=== PATIENT | female | born 1980 | race Caucasian/White ===

== ENCOUNTER 2017-11-24 17:54 | Inpatient (IN) | payer OTHER ==
[2017-11-24] MEDS ORDERED: LR 500 ML IV ONE (18:55)
[2017-11-24] MEDS ORDERED: ceFAZolin 2 GM/DEXTROSE 100 ML IV ONE (18:55)
[2017-11-24] MEDS ORDERED: CITRIC ACID/SODIUM CITRATE 30 ML UDCUP PO ONE (18:55)
[2017-11-24] MEDS ORDERED: LR 1,000 ML IV SCH (19:00)
[2017-11-24 19:05] LABS: PLATELET COUNT 245 10^3/uL (150-400)
[2017-11-24] MEDS ORDERED: fentaNYL 100 MCG/2 ML INJ ONE (19:33)
[2017-11-24] MEDS ORDERED: morphINE PF 5 MG/10 ML INJ ONE (19:33)
--- NOTE | 2017-11-24 20:01 | PREANESOB ---
Obstetric Pre-Anesthesia Info - General Info Proposed Procedure: Repeat C Section. : 2 Para: 1 BRIDGET: 12/10/17 Gestational Age: 37 week(s) and 5 day(s) - Info Status: Full Term Monitors: External FHR Baseline (bpm): 150 FHR Pattern: Reassuring - Labor Status Section History: Repeat Indications for Current Section: Elective/Repeat (SROM.) Labor Epidural: No Anesthesia ROS: Prior spinal for C/S and general anesthesia. Allergies/Adverse Reactions: Allergy/AdvReac Type Severity Reaction Status Date / Time Sulfa (Sulfonamide Allergy Verified 07/07/15 05:58 Antibiotics) Home Medications: Medication Instructions Recorded Herbals/Supplements -Info Only 4 tab PO DAILY 07/07/15 Vit27&Calcium/Iron/FA 1 tab PO DAILY 07/07/15 [] Docusate Sodium [Colace 100 MG (*)] 100 mg PO BID PRN #0 cap 07/10/15 FLUoxetine [Prozac 20 MG (*)] 60 mg PO DAILY #0 cap 07/10/15 Hydrocodone/APAP 5/325 [[place] 1 - 2 tab PO Q4 PRN #0 tab 07/10/15 5/325 (*)] Ibuprofen [Motrin (*)] 600 mg PO Q6 PRN #0 tab 07/10/15 Iron Polysacch/Iron Heme Polyp 28 mg PO BID #0 tab 07/10/15 [Bifera] valACYclovir [Valtrex (*)] 500 mg PO BID #0 tab 07/10/15 Visit Medications: Generic Name Dose Route Start Last Admin Trade Name Freq PRN Reason Stop Dose Admin Lactated Ringer's 1,000 mls @ 125 mls/hr 11/24/17 19:00 11/24/17 18:55 Lr IV 11/25/17 18:59 1,000 mls CONT TAB Administration Discontinued Medications Generic Name Dose Route Start Last Admin Trade Name Freq PRN Reason Stop Dose Admin Citric Acid/Sodium Citrate 30 ml 11/24/17 18:55 11/24/17 19:43 Bicitra PO 11/24/17 18:56 30 ml ONCALL ONE Administration Fentanyl Confirm 11/24/17 19:33 Sublimaze Administered 11/24/17 19:34 Dose 100 mcg .ROUTE .STK-MED ONE Cefazolin Sodium/Dextrose 100 mls @ 200 mls/hr 11/24/17 18:55 11/24/17 19:41 Ancef 2 Gm IV 11/24/17 19:24 100 mls ONCALL ONE Administration Protocol Lactated Ringer's 500 mls @ 0 mls/hr 11/24/17 18:55 Lr IV 11/24/17 18:56 ONCE ONE As Directed Morphine Sulfate Confirm 11/24/17 19:33 Morphine Pf 5 Mg/10 Ml Administered 11/24/17 19:34 Dose 5 mg .ROUTE .STK-MED ONE - Anesthesia History Response to Local Anesthetics: Normal Anesthesia & Operative History: No Prior Problems Family Anesthesia History: Negative - Social History Substance Use/Abuse: Denies - Vital Signs Latest Vital Signs (Nursing): Temp Pulse Resp BP Pulse Ox 37.3 C 76 17 126/79 H 95 11/24/17 19:11 11/24/17 18:23 11/24/17 19:11 11/24/17 19:11 11/24/17 19:11 Blood Pressure: 126/79 Heart Rate: 76 Height/Weight (Nursing): Height 170.18 cm Weight 82.372 kg - Focused Exam Neck exam: FROM Mallampati Score: Class 1 Mouth exam: normal dental/mouth exam Pulmonary: no respiratory distress Cardiovascular: regular rate and rhythym Labs: 11/24/17 18:50 Patient ABO/Rh O POSITIVE 11/24/17 18:50 - Plan Anesthetic Plan: SAB Consent Signed and on Chart: Yes Patient/Guardian Understands and Agrees to Plan: Yes
[2017-11-24] MEDS ORDERED: ONDANSETRON 4 MG/2 ML VIAL ONE ×2 (20:30→20:31)
[2017-11-24] MEDS ORDERED: DEXAMETHASONE 4 MG/ML VIAL ONE ×2 (20:30→20:31)
[2017-11-24] MEDS ORDERED: OXYTOCIN 100 UNITS/10 ML VIAL ONE (20:30)
[2017-11-24] MEDS ORDERED: PHENYLEPHRINE HCL 100 MCG/ML SYR ONE ×2 (20:31→21:06)
[2017-11-24] MEDS ORDERED: PROMETHAZINE HCL 25 MG/ML INJ IVP PRN (21:39)
[2017-11-24] MEDS ORDERED: SIMETHICONE 80 MG TAB CHEW PO PRN (21:39)
[2017-11-24] MEDS ORDERED: DOCUSATE SODIUM 100 MG CAP PO PRN (21:39)
[2017-11-24] MEDS ORDERED: BISACODYL 10 MG SUPP PR PRN (21:41)
[2017-11-24] MEDS ORDERED: MAGNESIUM HYDROXIDE 30 ML UDCUP PO PRN (21:41)
[2017-11-24] MEDS ORDERED: LACTULOSE 20 GM/30 ML UDCUP PO PRN (21:41)
--- NOTE | 2017-11-24 21:45 | OBDEL ---
Info Type: Repeat Presentation at Delivery: Vertex L&D Analgesia/Anesthesia Type: Spinal GBS+: No Intrapartum Medications: Generic Name Dose Route Start Last Admin Trade Name Freq PRN Reason Stop Dose Admin Lactated Ringer's 1,000 mls @ 125 mls/hr 11/24/17 19:00 11/24/17 18:55 Lr IV 11/25/17 18:59 1,000 mls CONT TAB Administration Discontinued Medications Generic Name Dose Route Start Last Admin Trade Name Freq PRN Reason Stop Dose Admin Citric Acid/Sodium Citrate 30 ml 11/24/17 18:55 11/24/17 19:43 Bicitra PO 11/24/17 18:56 30 ml ONCALL ONE Administration Cefazolin Sodium/Dextrose 100 mls @ 200 mls/hr 11/24/17 18:55 11/24/17 19:41 Ancef 2 Gm IV 11/24/17 19:24 100 mls ONCALL ONE Administration Protocol - Care Provider Supervisor Special Effects/TRIAGE RN: Rhonda Mann Indications for Delivery: Spontaneous Labor, SROM Vaginal Delivery - Labor and Delivery Rupture of Membranes Date: 11/24/17 Rupture of Membranes Time: 16:40 Placenta Delivery Date: 11/24/17 Placenta Delivery Time: 20:43 Operative Report - Delivery Pre-op Diagnoses: IUP @ 37 5/7 weeks with h/o c section with G1, SROM Post-op Diagnoses: same History of Prior Section: Yes Number of Prior Sections: 1 Nulliparous Prior to Delivery: No Indications for Prior Section: Breech Indications for Current Section: Elective/Repeat (SROM.), Other ( Specify) (SROM @ 37 2/7 weeks) Procedure: Unscheduled Surgeon: Bel Crump Etl Analyst: Corby Gama Anesthesiologist: Colt Gar Complications: None Findings: normal uterus, tubes and ovaries IV Fluid (ml): 2,900 EBL: 700 Data BRIDGET: 12/10/17 Gestational Age: 37 week(s) and 5 day(s) [place] Delivery Date: 11/24/17 Delivery Time: 20:43 Sex of Infant: Female Score (1 Min): 8 Score (5 Min): 9 ICD10 Worksheet Patient Problems: Problems Problem Status Onset S/P section Acute - ICD10 Problem Qualifiers (1) S/P section
--- NOTE | 2017-11-24 21:46 | POSTANESTH ---
Post Anesthetic Evaluation Cardiovascular Status: Normal, Stable Respiratory Status: Normal, Stable, Similar to Pre-op Cond. Level of Consciousness/Mental Status: Can Participate in Eval, Alert and Oriented Pain Control: Adequate, Prn Tx Ordered Nausea/Vomiting Control: Adequate, Prn Tx Ordered Complications Possibly Related to Anesthesia: None Noted
[2017-11-24] MEDS ORDERED: PHENYLEPHRINE HCL 100 MCG/ML SYR IVP PRN (21:47)
[2017-11-24] MEDS ORDERED: NALOXONE HCL 0.4 MG/ML INJ IVP PRN (21:53)
[2017-11-24] MEDS ORDERED: ONDANSETRON 4 MG/2 ML VIAL IVP PRN (21:53)
[2017-11-24] MEDS ORDERED: KETOROLAC 30 MG/1 ML SDV ONE (22:12)
--- NOTE | 2017-11-24 22:21 | GOP ---
[f rep st] OPERATIVE REPORT DATE OF OPERATION: 11/24/2017 SURGEON: Bel Crump MD CREW SCHEDULER: Corby Gama MD. ANESTHESIA: Spinal anesthesia. ANESTHESIOLOGIST: Colt Gar MD. PREOPERATIVE DIAGNOSIS: 1. Intrauterine at 37-5/7 weeks' gestation with spontaneous rupture of the membranes. 2. History of lower transverse section desires repeat. POSTOPERATIVE DIAGNOSIS: 1. Intrauterine at 37-5/7 weeks' gestation with spontaneous rupture of the membranes. 2. History of lower transverse section desires repeat. PROCEDURE PERFORMED: Repeat lower transverse section. FINDINGS: Viable female 's of 8 and 9, weight of 6 pounds 5.5 ounces. ESTIMATED BLOOD LOSS: For the procedure was 700. INDICATIONS: The patient is a 36-year-old 2, para 1-0-0-1, with a last menstrual period of 1 05/04/2016, and EDC of 12/10/2017, which was confirmed by an 8-week ultrasound. 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 On the afternoon of the , the pa tient had spontaneous rupture of the membranes for clear fluid at 4:40 p.m. She had minimal cramping . No significant labor contractions. She was grossly ruptured. She presented to labor and delivery , and opted for a repeat for delivery. She was consented for the procedure. She understoo d the risks and benefits, the risks including bleeding, infection, damage to internal organs, uterus, tubes, ovaries, bowel, bladder, nerves, blood vessels, ureters, risk of injury, risk of hemorr jannet requiring blood transfusion, hysterectomy, or . She understood these risks and benefits an d agreed to proceed. DESCRIPTION OF PROCEDURE: The patient was taken to the operating room where she was placed under spi nal anesthesia without difficulty. She was prepped and draped in the dorsal supine position with a l eftward tilt, and a Avila catheter was placed in the bladder. After adequate anesthesia was document ed, a transverse skin incision was made with a scalpel and the incision was carried down to the under lying layer of fascia with the Bovie. The fascia was incised in the midline. Fascial incision was e xtended laterally with Ferreira scissors. The superior aspect of the fascial incision was grasped with K ocher clamps, elevated, and the rectus muscles were dissected off sharply. Inferior aspect of the fa scial incision was grasped with Radha clamps, elevated, and the rectus muscles were dissected off sh arply. Rectus muscles were in the midline. Peritoneum was entered sharply. Peritoneal in cision was extended superiorly and inferiorly with good visualization of the bladder. Bladder blade was reinserted. The vesicouterine peritoneum was entered sharply and the incision was extended later ally, and bladder flap was created digitally. Bladder blade was reinserted. The uterus was incised with a knife and there was clear amniotic fluid upon entry in the uterine cavity. The incision was e xtended laterally with banded scissors. The was delivered atraumatically. We delayed cord cl amping for 1 minute. Baby was strong and vigorous. The cord was clamped and cut. The infant was andre nded off to the waiting nurse practitioner. Cord bloods were sent. The placenta was remove d manually cleared. The uterus was exteriorized, cleared of all clots and debris. The incision was closed with 0 Vicryl in a running locked fashion. A second imbricating layer of suture was closed wi th 0 Vicryl and good hemostasis was obtained. The uterus was returned to the abdomen. Gutters were cleared of all clots and debris. Reinspection of the uterine incision again assured hemostasis. The rectus muscles were approximated with 2-0 Vicryl in inverted mattress fashion. The fascia was close d with #1 Vicryl in a running fashion. Subcutaneous layer was closed with 2-0 Vicryl and the skin wa s closed with 4-0 Vicryl. The patient tolerated the procedure well. Sponge, lap, needle, and instru ment counts were correct x2. The patient went to the recovery room in good condition. FLUID REPLACED: 2900. URINE OUTPUT: 400. /[id number]/MODL
[2017-11-24] MEDS: KETOROLAC 30 MG/1 ML SDV IVP SCH (23:47)
[2017-11-25] MEDS: ACETAMINOPHEN 325 MG TAB PO SCH ×4 (00:39→20:20)
[2017-11-25] MEDS: KETOROLAC 30 MG/1 ML SDV IVP SCH ×3 (04:28→16:10)
[2017-11-25] MEDS: FAMOTIDINE 20 MG TAB PO PRN (05:35)
[2017-11-25] MEDS: SENNOSIDES/DOCUSATE SODIUM TAB PO SCH ×2 (10:05→20:19)
--- NOTE | 2017-11-25 17:54 | OBPP ---
Progress Note Assessment/Plan: Assessment: 36 y/o POD #1 s/p Rpt c section @ 37 weeks with SROM Plan: Bifera QD, support. Will start oral pain meds prn. Avila out this pm. 11/25/17 17:53 Subjective/ Course: 11/25/17 17:51 Pt is doing well today. She has good pain control with Toradol only, she is ambulating and has min lochia. She is tolerating reg diet without nausea. Breast feeding is going well, trying to get the baby to wake up. Objective: 11/25/17 05:30 Patient ABO/Rh O POSITIVE 11/24/17 18:50 Temp Pulse Resp BP Pulse Ox 36.9 C 58 L 18 100/58 L 95 11/25/17 15:00 11/25/17 15:00 11/25/17 15:00 11/25/17 15:00 11/25/17 15:00 Uterine Position/Fundal Height: Umbilicus -3 Uterine Tone: Firm Physical Exam - Physical Exam General Appearance: alert, no apparent distress Neck: non-tender, full range of motion, supple Respiratory: chest non-tender, normal breath sounds Cardiac/Chest: regular rate, rhythm Abdomen: normal bowel sounds, incision (c/d/i) Extremities: swelling (no), Luis's sign (neg)
[2017-11-25] MEDS: IBUPROFEN 600 MG TAB PO SCH (23:09)
[2017-11-26] MEDS: ACETAMINOPHEN 325 MG TAB PO SCH ×4 (02:30→22:11)
[2017-11-26] MEDS: IBUPROFEN 600 MG TAB PO SCH ×3 (04:51→18:49)
[2017-11-26] MEDS: FAMOTIDINE 20 MG TAB PO PRN (04:56)
[2017-11-26] MEDS ORDERED: IRON POLYSAC/IRON HEME 28 MG TAB PO SCH (09:00)
[2017-11-26] MEDS: SENNOSIDES/DOCUSATE SODIUM TAB PO SCH (10:23)
[2017-11-26] MEDS: POLYETHYLENE GLYCOL 3350 17 GM PKT PO PRN (10:31)
[2017-11-26] MEDS: oxyCODONE IR 5 MG TAB PO PRN ×3 (10:47→22:06)
--- NOTE | 2017-11-26 11:46 | OBPP ---
Progress Note Assessment/Plan: Assessment: [id number] s/p repeat C/S POD#2 anemia Plan: Routine PO care ambulate cont / support start PO iron advised high fiber foods, increase water intake plan d/c home 24-48hours Subjective/ Course: 11/25/17 17:51 Pt is doing well today. She has good pain control with Toradol only, she is ambulating and has min lochia. She is tolerating reg diet without nausea. Breast feeding is going well, trying to get the baby to wake up. 11/26/17 11:57 Pt doing well, sitting in chair. She is ambulating and voiding without difficulty. She denies any severe pain or heavy bleeding. She is taking ibuprofen and oxy (PRN). She is without difficulty. Family @ BS and supportive. Objective: 11/25/17 05:30 Patient ABO/Rh O POSITIVE 11/24/17 18:50 Temp Pulse Resp BP Pulse Ox 36.8 C 75 16 117/70 95 11/26/17 09:25 11/26/17 09:25 11/26/17 09:25 11/26/17 09:25 11/26/17 09:25 Uterine Position/Fundal Height: Umbilicus -1, Midline Uterine Tone: Firm Physical Exam - Physical Exam General Appearance: WD/WN, alert, no apparent distress Neck: supple Respiratory: normal breath sounds Cardiac/Chest: regular rate, rhythm Abdomen: non-tender, soft, incision (healing well, well approximated, steristrips present) Extremities: non-tender Skin: normal color, warm/dry Neuro/Psych: alert, normal mood/affect, oriented x 3
[2017-11-26] MEDS: FERROUS SULFATE 325 MG TAB PO SCH (12:49)
[2017-11-26] MEDS: IRON POLYSAC/IRON HEME 28 MG TAB PO SCH (12:52)
[2017-11-26 19:21] VITALS: BP 114/62
[2017-11-27] MEDS: ACETAMINOPHEN 325 MG TAB PO SCH ×3 (00:30→12:07)
[2017-11-27] MEDS: IBUPROFEN 600 MG TAB PO SCH ×3 (00:30→12:07)
[2017-11-27] MEDS: SENNOSIDES/DOCUSATE SODIUM TAB PO SCH ×2 (01:38→10:20)
[2017-11-27] MEDS: IRON POLYSAC/IRON HEME 28 MG TAB PO SCH (10:20)
[2017-11-27] MEDS: FERROUS SULFATE 325 MG TAB PO SCH (10:21)
[2017-11-27] MEDS: POLYETHYLENE GLYCOL 3350 17 GM PKT PO PRN (10:26)
--- NOTE | 2017-11-27 11:20 | OBPP ---
Progress Note Assessment/Plan: Assessment: [id number] s/p repeat C/S POD#3 anemia Plan: Routine PO care ambulate cont / support start PO iron advised high fiber foods, increase water intake plan d/c home today Subjective/ Course: Doing great, would like recs for pelvic PT. Ready for home. Objective: 11/25/17 05:30 Patient ABO/Rh O POSITIVE 11/24/17 18:50 Temp Pulse Resp BP Pulse Ox 36.6 C 73 16 114/62 95 11/26/17 19:20 11/26/17 19:20 11/26/17 19:20 11/26/17 19:20 11/26/17 19:20 Uterine Position/Fundal Height: At Umbilicus Uterine Tone: Firm Physical Exam - Physical Exam Abdomen: incision (CDI no s/sx of infx)
--- NOTE | 2017-11-27 12:27 | OBGCSDC ---
General Delivery Information - General Info : 2 Para: 2 Abortions: 0 Type: Repeat L&D Analgesia/Anesthesia Type: Spinal Admission Date: 11/24/17 Labs: Patient ABO/Rh O POSITIVE 11/24/17 18:50 Hct 33.9 % (38.0-47.0) L 11/25/17 05:30 - Hospital Course : 11/25/17 17:51 Pt is doing well today. She has good pain control with Toradol only, she is ambulating and has min lochia. She is tolerating reg diet without nausea. Breast feeding is going well, trying to get the baby to wake up. 11/26/17 11:57 Pt doing well, sitting in chair. She is ambulating and voiding without difficulty. She denies any severe pain or heavy bleeding. She is taking ibuprofen and oxy (PRN). She is without difficulty. Family @ BS and supportive. - Delivery Providers Surgeon: Bel Crump Jig Bore Tool Maker: Corby Gama Anesthesiologist: Colt Gar - Delivery Number of Prior Sections: 1 Indications for Current Section: Elective/Repeat (SROM.), Other ( Specify) (SROM @ 37 2/7 weeks) Surgical Procedures: Unscheduled Intra-op Complications: None EBL: 700 [place] Data BRIDGET: 12/10/17 Gestational Age: 40 week(s) and 5 day(s) [place] Delivery Date: 11/24/17 Delivery Time: 20:43 Sex of : Female [place] Weight (gm): 2872 g Score (1 Min): 8 Score (5 Min): 9 Discharge Information - Discharge Information Prescriptions: oxyCODONE IR [Oxycodone Ir (*)] 5 - 10 mg PO Q4HRS PRN #30 tab PRN Reason: Pain, Severe Condition: Good Instruction/Follow Up: See Instruction Sheet, Two Weeks, Four Weeks, Six Weeks
== END 2017-11-27 14:40 | disposition home or self-care (01) | DRG 766 ==
LOC: FLD 17:54 → FOB 23:10
PROVIDERS: ADMIT Obstetrics & Gynecology; ATTEND Obstetrics & Gynecology
PROC: 10D00Z1 Extraction of Products of Conception, Low, Open Approach (ICD-10-PCS; principal; 2017-11-24)
DX: O34.219 Maternal care for unspecified type scar from previous cesarean delivery (principal); Z37.0 Single live birth; Z3A.37 37 weeks gestation of pregnancy
CPT/HCPCS: J0690; J1100; J1885; J2274; J2370; J2405; J2590; J3010